=== PATIENT | male | born 1960 | race Caucasian/White ===

== ENCOUNTER 2018-10-21 09:22 | Inpatient (IN) | payer BC ==
[2018-10-21] MEDS ORDERED: ASPIRIN 81 MG CHEWABLE TABLETS PO ONE (09:27)
[2018-10-21 09:31] VITALS: BMI 41.9
[2018-10-21] MEDS ORDERED: HYDROmorphone HCl 2 MG/ML VIAL ONE ×2 (09:32→10:53)
[2018-10-21] MEDS ORDERED: HYDROmorphone HCL CARPU-JECT 2 MG/1 ML DISP.SYRIN IVPUSH ONE ×2 (09:38→10:52)
--- NOTE | 2018-10-21 09:53 | PDOC ---
History of Present Illness - General Chief Complaint: Chest Pain Stated Complaint: CHEST PAIN Time Seen by Provider: 10/21/18 09:27 - History of Present Illness Initial Comments: 10/21/18 10:44 58 years old past medical history significant for high cholesterol, obesity, daily alcohol use no history of withdrawal presents to the ED with sudden onset abdominal discomfort radiating across abdomen and across the back started approximate 5 AM this morning 10 out of 10 severe sharp associated with diaphoresis and nausea no alleviating factors no history of similar Past History - Past Medical History Allergies/Adverse Reactions: Allergies Allergy/AdvReac Type Severity Reaction Status Date / Time cephalexin monohydrate Allergy Intermediate Rash Verified 10/21/18 09:46 [From Keflex] Home Medications: Ambulatory Orders Pantoprazole Sodium [Protonix -] 40 mg PO BID #60 tablet.ec 04/18/15 Aspirin [ASA -] 325 mg PO DAILY@0800 tablet 06/03/16 Oxycodone HCl/Acetaminophen [Percocet 5-325 mg Tablet] 1 - 2 tab PO Q6H PRN #50 tablet MDD 8 06/04/16 Anemia: No Asthma: No Cancer: No Cardiac Disorders: No CVA: No COPD: No CHF: No Dementia: No Diabetes: No GI Disorders: Yes (GI BLEED, DIVERTICULITIS;HEMORROIDS'HYPERPLASTIC POLYPS) Disorders: No HTN: Yes Hypercholesterolemia: No Liver Disease: No Seizures: No Thyroid Disease: No - Surgical History Abdominal Surgery: No Appendectomy: No Cardiac Surgery: No Cholecystectomy: No GI Surgery: No Lung Surgery: No Neurologic Surgery: No Orthopedic Surgery: Yes (R KNEE SUREGERY,R SHOULDER SURGERY) - Immunization History Immunization Up to Date: No - Suicide/Smoking/Psychosocial Hx Smoking History: Current every day smoker Have you smoked in the past 12 months: Yes Number of Cigarettes Smoked Daily: 20 Information on smoking cessation initiated: No 'Breaking Loose' booklet given: 07/30/15 Hx Alcohol Use: Yes Drug/Substance Use Hx: No Substance Use Type: Alcohol Hx Substance Use Treatment: No Review of Systems - Review of Systems Comments:: 10/21/18 10:45 ROS: A complete review of 10 out of 10 review of systems is taken and is negative apart from what is previously mentioned below and in the HPI. *Physical Exam - Vital Signs Last Vital Signs Temp Pulse Resp BP Pulse Ox 97.8 F 112 H 16 150/116 H 97 10/21/18 09:29 10/21/18 09:29 10/21/18 09:29 10/21/18 09:29 10/21/18 09:29 - Physical Exam Comments: 10/21/18 10:45 Vitals: Triage Vital signs reviewed General Appearance: Moderate distress, well nourished well developed, Head: Atraumatic, Eyes: Pupils equal reactive round, extraocular movement intact Neck: Supple;No Nucal rigidity Chest Wall: Nontender Cardiac:Tachycardic Lungs: Clear to auscultation bilateral, good air movement bilaterally, Abdomen: Diffusely tender to palpation Extremities: Full range of motion to all extremities, no cyanosis, clubbing, or edema Skin: Warm and dry, no rashes or lesions, no rash, no petechiae Psych: normal mood, normal affect Heart Score/ECG Review - ECG Impressions Comment:: 10/21/18 10:46 Sinus tachycardia ED Treatment Course - LABORATORY CBC & Chemistry Diagram: 10/21/18 09:38 10/21/18 09:38 - RADIOLOGY Radiology Studies Ordered: Category Date Time Status ABDOMEN/PELVIS CTA W/WO CONTR [CT] Stat CT Scan 10/21/18 09:49 Ordered CHEST CTA [CT] Stat CT Scan 10/21/18 09:49 Ordered ABDOMEN FLAT & UPRIGHT [RAD] Stat Radiology 10/21/18 09:37 Ordered CXRPORT [CHEST X-RAY PORTABLE*] [RAD] Stat Radiology 10/21/18 09:47 Ordered - Medications Given in the ED: ED Medications Discontinued Medications Generic Name Dose Route Start Last Admin Trade Name Freq PRN Reason Stop Dose Admin Hydromorphone HCl 1 mg 10/21/18 09:38 10/21/18 09:39 Dilaudid Injection - IVPUSH 10/21/18 09:39 1 mg ONCE ONE Administration Medical Decision Making - Critical Care Time Total Critical Care Time (minutes): 60 Critical Care Statement: The care of this patient involved high complexity decision making to prevent further life threatening deterioration of the patient 's condition and/or to evaluate & treat vital organ system(s) failure or risk of failure. - Medical Decision Making 10/21/18 16:41 58 years old does not follow with a primary care doctor chronic alcohol abuse to pack-a-day smoking history obesity drinks 8-12 ounces of vodka daily no history of withdrawal presents to the ED with severe upper quadrant abdominal pain radiating across his stomach Patient tachycardic and diaphoretic on presentation stat EKG performed which showed no ischemic changes only sinus tachycardia CTA chest abdomen pelvis performed with Gastrografin in case of viscus perforation with no evidence of aneurysm dissection or viscus perforation Throughout the course of the patient in the emergency department he required a total of 3 mg of Dilaudid 1 g of acetaminophen and 30 mg of ketamine for pain control pain is now better controlled but has not resolved Patient had a CT was score of 20 although unclear how much of this was secondary to pain 1 g of Ativan was given in case withdrawal was a component of this Ativan did not seem to help patient's symptomatology No clear etiology of patient's pain at this time GI and surgery have been consult in case discussed with surgery does not appear surgical in nature We'll admit to hospital for further management of abdominal pain unknown etiology. *DC/Admit/Observation/Transfer Diagnosis at time of Disposition: Abdominal pain Qualifiers: Abdominal location: left upper quadrant Qualified Code(s): R10.12 - Left upper quadrant pain - Discharge Dispostion Condition at time of disposition: Stable Decision to Admit order: Yes - Referrals - Patient Instructions - Post Discharge Activity
[2018-10-21 10:16] LABS: BASO % 1.5 % (0-2.0); EOS % 1.5 % (0-4.5); HEMATOCRIT 50.9 % (35.4-49); HEMOGLOBIN 17.7 GM/dL (11.7-16.9); LYMPH % 27.5 % (8-40); MCH 33.9 pg (25.7-33.7); MCHC 34.8 g/dl (32.0-35.9); MEAN CELL VOLUME 97.5 fl (80-96); MEAN PLT VOLUME 9.4 fl (7.5-11.1); MONO % 8.3 % (3.8-10.2); NEUT % 61.2 % (42.8-82.8); PLATELET COUNT 158 K/MM3 (134-434); RBC 5.22 M/mm3 (4.00-5.60); RDW 13.8 % (11.9-15.9); WHITE BLOOD COUNT 6.3 K/mm3 (4.0-10.0)
[2018-10-21] MEDS ORDERED: ACETAMINOPHEN INJECTION 100 ML IVPB ONE (10:21)
[2018-10-21] MEDS ORDERED: ACETAMINOPHEN 1000 MG/100 ML VIAL (NON FORMULARY) IVPB ONE (10:24)
[2018-10-21 10:32] LABS: PROTHROMBIN TIME (PATIENT) 11.8 SEC (9.7-13.0)
[2018-10-21 10:51] LABS: ALBUMIN 3.8 g/dl (3.4-5.0); ALK PHOS 79 U/L (45-117); ANION GAP 10 MMOL/L (8-16); BILIRUBIN,TOTAL 0.8 mg/dL (0.2-1); BLOOD UREA NITROGEN 11 mg/dL (7-18); CALCIUM 9.3 mg/dL (8.5-10.1); CHLORIDE 100 mmol/L (98-107); CO2 24 mmol/L (21-32); GLUCOSE,RANDOM 144 mg/dL (74-106); MAGNESIUM 1.9 mg/dL (1.8-2.4); POTASSIUM 4.7 mmol/L (3.5-5.1); SGOT/AST 88 U/L (15-37); SGPT/ALT 77 U/L (13-61); SODIUM 134 mmol/L (136-145); TOT PROT 8.2 g/dl (6.4-8.2)
[2018-10-21] MEDS ORDERED: ONDANSETRON 4 MG/2 ML VIAL IVPUSH ONE (10:52)
[2018-10-21] MEDS ORDERED: ONDANSETRON 4 MG/2 ML VIAL ONE (10:53)
[2018-10-21 11:35] LABS: LIPASE 134 U/L (73-393)
[2018-10-21] MEDS ORDERED: KETAMINE HCL 200 MG/20 ML VIAL IVPUSH ONE (12:08)
[2018-10-21] MEDS ORDERED: FAMOTIDINE 20 MG/50 ML IVPB 20 MG/50 ML MG IVPB ONE ×2 (12:09→12:25)
[2018-10-21] MEDS ORDERED: SODIUM CHLORIDE 0.9% 1000 ML INFUS.BAG IV ONE (12:16)
[2018-10-21] MEDS ORDERED: DICYCLOMINE HCL 10 MG CAPSULE PO ONE (12:17)
[2018-10-21] MEDS ORDERED: MAG HYDROX/AL HYDROX/SIMETH 30 ML UNIT-DOSE CUP PO ONE (12:17)
[2018-10-21] MEDS ORDERED: LORazepam 2 MG/ML SDV VIAL ONE (12:24)
[2018-10-21] MEDS ORDERED: MAG HYDROX/AL HYDROX/SIMETH 30 ML UNIT-DOSE CUP ONE (12:25)
[2018-10-21] MEDS ORDERED: DICYCLOMINE HCL 10 MG CAPSULE ONE (12:25)
--- NOTE | 2018-10-21 12:54 | HP ---
CHIEF COMPLAINT: abdominal pain PCP: does not have one HISTORY OF PRESENT ILLNESS: Patient is a 58 year old male with a significant past medical history of ETOH daily use (Vodka 12-21 ounces daily), hyperlipidemia, obesity. Patient presents to the ED today with complaints of sudden onset of left sided abdominal pain and discomfort that radiates across his entire abdomen and across his back. This abdominal pain began today at 0500 this morning and pain was severe 10/10 and associated with diaphoresis and nausea. He denies any nausea, vomiting, denies any headaches, no diarrhea, constipation, no chest pain. Patient tachycardic and diaphoretic on presentation to the ED and a stat EKG showed sinus tachycardia. CTA chest/abdomen/pelvis performed with no evidence of aneurysm dissection or evidence of perforation. In the ED patient's abdominal pain was treated with Dilaudid, Ketamine for pain control and Morphine IV. He was also given Ativan 1mg for possible alcohol withdrawal. Since serial abdominal imaging negative for cause of abdominal pain, GI was consulted by the ED. Patient anxious and tremulous in the ED. CIWA score elevated but he denies any history of withdrawal seizures. Will give ativan prn , banana bag and monitor closely. May need Libirum if he goes into acute alcohol withdrawal. ER course was notable for: (1) dilaudid, ketamine, ativan. (2) abdominal pain, negative abdominal imaging (3) Recent Travel: denies PAST MEDICAL HISTORY: as noted above Social History: Smoking: daily, pack per day Alcohol: 12-21 ounces of vodka daily Drugs: none reported Family History: Allergies cephalexin monohydrate [From Keflex] Allergy (Intermediate, Verified 10/21/18 09 :46) Rash HOME MEDICATIONS: Home Medications Medication Instructions Recorded Pantoprazole Sodium [Protonix -] 40 mg PO BID #60 tablet.ec 04/18/15 Aspirin [ASA -] 325 mg PO DAILY@0800 tablet 06/03/16 Oxycodone HCl/Acetaminophen 1 - 2 tab PO Q6H PRN #50 tablet 06/04/16 [Percocet 5-325 mg Tablet] MDD 8 PHYSICAL EXAMINATION Vital Signs - 24 hr 10/21/18 09:29 Temperature 97.8 F Pulse Rate 112 H Respiratory 16 Rate Blood Pressure 150/116 H O2 Sat by Pulse 97 Oximetry (%) GENERAL: Awake, alert, and fully oriented, anxious and in diffused abdominal pain. HEAD: Normal with no signs of trauma. EYES: Pupils equal, round and reactive to light, extraocular movements intact, sclera anicteric, conjunctiva clear. No lid lag. EARS, NOSE, THROAT: Ears normal, nares patent, oropharynx clear without exudates. Moist mucous membranes. NECK: Normal range of motion, supple without lymphadenopathy, JVD, or masses. LUNGS: Breath sounds equal, clear to auscultation bilaterally. No wheezes, and no crackles. No accessory muscle use. HEART: Regular rate and rhythm ABDOMEN: obsese abdomen, pain on palpation of left upper quadrant. abdominal pain radiates to ribs. MUSCULOSKELETAL: Normal range of motion at all joints. No bony deformities or tenderness. No CVA tenderness. UPPER EXTREMITIES: No peripheral edema. LOWER EXTREMITIES: No peripheral edema. NEUROLOGICAL: Normal speech. PSYCHIATRIC: anxious, tremulous, appears to be in alcohol withdrawal. ciwa elevated. Laboratory Results - last 24 hr 10/21/18 10/21/18 10/21/18 09:38 09:38 09:38 WBC 6.3 RBC 5.22 Hgb 17.7 H Hct 50.9 H MCV 97.5 H MCH 33.9 H MCHC 34.8 RDW 13.8 Plt Count 158 MPV 9.4 Absolute Neuts (auto) 3.9 Neutrophils % 61.2 Lymphocytes % 27.5 Monocytes % 8.3 Eosinophils % 1.5 Basophils % 1.5 Nucleated RBC % 0 PT with INR 11.80 INR 1.00 Sodium 134 L Potassium 4.7 Chloride 100 Carbon Dioxide 24 Anion Gap 10 BUN 11 Creatinine 1.0 Creat Clearance w eGFR 77.30 Random Glucose 144 H Calcium 9.3 Magnesium 1.9 Total Bilirubin 0.8 AST 88 H ALT 77 H Alkaline Phosphatase 79 Creatine Kinase 350 H Creatine Kinase Index 0.7 CK-MB (CK-2) 2.7 Troponin I < 0.02 Total Protein 8.2 Albumin 3.8 Lipase 134 Blood Type Antibody Screen 10/21/18 09:38 WBC RBC Hgb Hct MCV MCH MCHC RDW Plt Count MPV Absolute Neuts (auto) Neutrophils % Lymphocytes % Monocytes % Eosinophils % Basophils % Nucleated RBC % PT with INR INR Sodium Potassium Chloride Carbon Dioxide Anion Gap BUN Creatinine Creat Clearance w eGFR Random Glucose Calcium Magnesium Total Bilirubin AST ALT Alkaline Phosphatase Creatine Kinase Creatine Kinase Index CK-MB (CK-2) Troponin I Total Protein Albumin Lipase Blood Type O NEGATIVE Antibody Screen Negative ASSESSMENT/PLAN: Patient is a 58 year old male with a significant past medical history of ETOH daily use (Vodka 12-21 ounces daily), hyperlipidemia, obesity. Patient presents to the ED today with complaints of sudden onset of left sided abdominal pain and discomfort that radiates across his entire abdomen and across his back. This abdominal pain began today at 0500 this morning and pain was severe 10/10 and associated with diaphoresis and nausea. He denies any nausea, vomiting, denies any headaches, no diarrhea, constipation, no chest pain. Patient with tachycardia and diaphoretic on presentation to the ED and a stat EKG showed sinus tachycardia. CTA chest/abdomen/pelvis performed with no evidence of aneurysm dissection or evidence of perforation. In the ED patient' s abdominal pain was treated with Dilaudid, Ketamine for pain control and Morphine IV. He was also given Ativan 1mg for possible alcohol withdrawal. Since serial abdominal imaging negative for cause of abdominal pain, GI was consulted by the ED. Patient anxious and tremulous in the ED. CIWA score elevated but he denies any history of withdrawal seizures. Will give ativan prn , banana bag and monitor closely. May need Libirum if he goes into acute alcohol withdrawal. Imaging: abdominal cta/chest cta: no acute pathology abdominal ultrasound: hepatomegaly, diffuse fatty infiltrates of the liver. Abdominal pain. unclear etiology. no evidence of trauma, no falls reported. negative serial imaging of abdomen, negative for perforation or of aneurysm/dissection. Treated with IV Dilaudid, Ketamine, morphine. Will start on clears and monitor GI consulted for further recommendations. Acute ETOH withdrawal CIWA score elevated. Denies history of withdrawal seizures. Start on Ativan 2m IV Initiate Librium if patient experiences acute ETOH w/drawl Monitor on tele. Card: Rule out cardiac cause of abdominal discomfort Troponin initally negative, trend x 2 Echo in a.m. Monitor on tele daily ekgs. fen clears monitor electrolytes prophy SCDs Visit type - Emergency Visit Emergency Visit: Yes ED Registration Date: 10/21/18 Care time: The patient presented to the Emergency Department on the above date and was hospitalized for further evaluation of their emergent condition. - New Patient This patient is new to me today: Yes Date on this admission: 10/21/18 - Critical Care Critical Care patient: No
[2018-10-21] MEDS ORDERED: KETAMINE HCL 200 MG/20 ML VIAL ONE (13:15)
--- NOTE | 2018-10-21 13:37 | EKG ---
Test Reason : Blood Pressure : / mmHG Vent. Rate : 111 BPM Atrial Rate : 111 BPM P-R Int : 140 ms QRS Dur : 078 ms QT Int : 358 ms P-R-T Axes : 063 025 066 degrees QTc Int : 486 ms SINUS TACHYCARDIA WITH OCCASIONAL PREMATURE VENTRICULAR COMPLEXES POSSIBLE LEFT ATRIAL ENLARGEMENT NONSPECIFIC T WAVE ABNORMALITY ABNORMAL ECG WHEN COMPARED WITH ECG OF 30-JUL-2015 13:37, PREMATURE VENTRICULAR COMPLEXES ARE NOW PRESENT Confirmed by LALITHA ASENCIO, STEPHY ([id number]) on 10/21/2018 1:37:11 PM Referred By: Confirmed By:STEPHY DOTY MD
[2018-10-21] MEDS ORDERED: FOLIC ACID INJECTION - 1 MG, THIAMINE HCL 100 MG, MULTIVIT INJECTION ADULT 10 ML in SOD... IVPB ONE (15:32)
[2018-10-21] MEDS ORDERED: SODIUM CHLORIDE 1,000 ML IV SCH (15:45)
[2018-10-21] MEDS ORDERED: LORazepam 2 MG/ML SDV VIAL IVPUSH PRN (17:29)
[2018-10-21] MEDS ORDERED: morphine SULFATE 4 MG/ML VIAL IVPUSH PRN (17:30)
[2018-10-21 18:42] LABS: URINE APPEARANCE CLEAR; URINE BILIRUBIN SMALL (NEGATIVE); URINE COLOR DK YELLOW; URINE GLUCOSE (UA) NEGATIVE (NEGATIVE); URINE KETONE 15 mg/dl (NEGATIVE); URINE PROTEIN 100 (NEGATIVE)
[2018-10-21 18:43] LABS: URINE LEUK ESTERASE NEGATIVE (NEGATIVE); URINE NITRITE NEGATIVE (NEGATIVE)
--- NOTE | 2018-10-21 19:02 | CON.GI ---
Consult Consult Specialty:: GI Referred by:: Hospitalist Service Reason for Consultation:: Abdominal pain - History of Present Illness Chief Complaint: My left side hurts History of Present Illness: 58M [address] [facility] for evaluation of intractable left upper flank/ adbominal/lower rib pain. Was in [facility] until 5AM this morning. he states waking up, getting a drink out of the fridge, feeling something "pop" along the left side of his lower ribs and began experiencing severe pain. Pain focused along left lower rib border, radiaiting at times to flank and abdomen and workse with motion, coughing and deep inspiration. No simialr episodes in the past. No associated nausea, vomiting although his son states that he was dry heaving over the weekend (has been trying to quit smoking by stoping cold turkey intermittently). No fevers, chills. No rectal bleeding/diarrhea. + constipation. Last BM thursday. Has prior EGD and colonoscopy with Dr. Tao. At [facility] he performed EGD 07/07 ([place] ulcer), 04/05: (bleeding AVM duodenum) and Colonoscopy 02/03 (severe diverticulosis and hyperplastic polyp ). More recently, he underwent EGD [address] Tao @ [facility] that rveealed gastritis. He is tremulous but states he has had tremors since childhood. Unreevaling work-up in ER including CTA chest/abdomen, abdominal US (enlarged fatty liver). - History Source History Provided By: Patient, Family Member, Medical Record Limitations to Obtaining History: No Limitations - Past Medical History Gastrointestinal: Yes: Constipation, Diverticulitis, Diverticulosis, GERD Hepatobiliary: Yes: Other (ALCOHOLIC FATTY LIVER, ALCOHOL ABUSE) Musculoskeletal: Yes: Osteoarthritis - Past Surgical History Past Surgical History: Yes: Joint Replacement (Right knee) - Alcohol/Substance Use Hx Alcohol Use: Yes (2-3 martini's per day) History of Substance Use: reports: None - Smoking History Smoking history: Current every day smoker Have you smoked in the past 12 months: Yes Aproximately how many cigarettes per day: 20 - Social History ADL: Independent Place of : [facility] History of Recent Travel: No Home Medications - Allergies Allergies/Adverse Reactions: Allergies Allergy/AdvReac Type Severity Reaction Status Date / Time cephalexin monohydrate Allergy Intermediate Rash Verified 10/21/18 09:46 [From Keflex] - Home Medications Home Medications: Ambulatory Orders Pantoprazole Sodium [Protonix -] 40 mg PO BID #60 tablet.ec 04/18/15 Aspirin [ASA -] 325 mg PO DAILY@0800 tablet 06/03/16 Oxycodone HCl/Acetaminophen [Percocet 5-325 mg Tablet] 1 - 2 tab PO Q6H PRN #50 tablet MDD 8 06/04/16 Family Disease History - Family Disease History Family Disease History: Other: Father (: 56: Ankylosing Spondylitis), Mother (: 76: CVA complications), Brother (1, healthy), Son (1, healthy), Daughter (1, healthy) Other Family History: No family history of colorectal cancer or other GI malignancy Review of Systems - Review of Systems Constitutional: denies: Chills, Fever, Unintentional Wgt. Loss Cardiovascular: denies: Chest Pain Respiratory: reports: Cough, SOB Physical Exam-GI Vital Signs: Vital Signs Constitutional: Yes: Anxious Eyes: No: Sclera Icterus Cardiovascular: Yes: Tachycardia (regular rhythm). No: Murmur Respiratory: Yes: CTA Bilaterally Gastrointestinal Inspection: Yes: Other (Mild rectus diastasis). No: Distention , Scars ...Auscultate: Yes: Normoactive Bowel Sounds ...Palpate: Yes: Soft, Tenderness (TTP along left lower ribs, left upper flank with guarding) ...Percussion: No: Tympanitic ...Rectal Exam: Yes: Other (No external lesions, no masses, light rico stool. No fecal impaction. No blood/melena. Prostate not palpated) Edema: No (No LE edema) Neurological: Yes: Alert, Tremors Labs: CBC, BMP 10/21/18 09:38 10/21/18 09:38 INR, PTT INR 1.00 (0.83-1.09) 10/21/18 09:38 Hepatic Panel Total Bilirubin 0.8 mg/dL (0.2-1) 10/21/18 09:38 AST 88 U/L (15-37) H 10/21/18 09:38 ALT 77 U/L (13-61) H 10/21/18 09:38 Alkaline Phosphatase 79 U/L (45-117) 05/02/19 09:38 Albumin 3.8 g/dl (3.4-5.0) 10/21/18 09:38 Imaging - Results Cat Scan: Report Reviewed Ultrasound: Report Reviewed Problem List - Problems (1) Abdominal pain Assessment/Plan: By reproducibilty upon palpation of left lower ribs along with worsening upon movement and inspiration, suspect somatic etiology of pain, ie musculoskeletal as opposed to visceral pathology. Advise: Alcohol and nicotine withdrawal protocols Urine tox NPO for now. IV hydration Surgical consult for opinion given severity of pain, however no acute pathology noted on imaging Lidoderm patch to the area with further management of pain per primary team Monitor for withdrawal NPO for now Protonix 20mg once daily given h/o reflux ? need for ASA 325mg daily. unclear indication. Code(s): R10.9 - UNSPECIFIED ABDOMINAL PAIN Qualifiers: Abdominal location: left upper quadrant Qualified Code(s): R10.12 - Left upper quadrant pain (2) Transaminitis Assessment/Plan: Fatty liver + actively drinking. Last drink was plast night Advised complete alcohol cessation Check screening hepatitis serologies Code(s): R74.0 - NONSPEC ELEV OF LEVELS OF TRANSAMNS & LACTIC ACID DEHYDRGNSE
[2018-10-21 19:06] VITALS: BP 177/104; PULSE 100; TEMP 98.2
[2018-10-21] MEDS ORDERED: LIDOCAINE 5% TOPICAL PATCH TP ONE (19:21)
[2018-10-21] MEDS ORDERED: LIDOCAINE 5% TOPICAL PATCH ONE (19:59)
--- NOTE | 2018-10-21 21:17 | DS ---
Physical Exam: SUBJECTIVE: Patient seen and examined OBJECTIVE: Vital Signs Period Temp Pulse Resp BP Sys/Godinez Pulse Ox Last 24 Hr 97.8 F-98.2 F 100-112 16-19 150-177/104-116 95-97 PHYSICAL EXAM GENERAL: The patient is awake, alert, and fully oriented, in no acute distress. HEAD: Normal with no signs of trauma. EYES: PERRL, extraocular movements intact, sclera anicteric, conjunctiva clear. ENT: Ears normal, nares patent, oropharynx clear without exudates, moist mucous membranes. NECK: Trachea midline, full range of motion, supple. LUNGS: Breath sounds equal, clear to auscultation bilaterally, no wheezes, no crackles, no accessory muscle use. HEART: Regular rate and rhythm, S1, S2 without murmur, rub or gallop. ABDOMEN: Soft, nontender, nondistended, normoactive bowel sounds, no guarding, no rebound, no hepatosplenomegaly, no masses. EXTREMITIES: 2+ pulses, warm, well-perfused, no edema. NEUROLOGICAL: Cranial nerves II through XII grossly intact. Normal speech, gait not observed. PSYCH: Normal mood, normal affect. SKIN: Warm, dry, normal turgor, no rashes or lesions noted. LABS Laboratory Results - last 24 hr 10/21/18 10/21/18 10/21/18 09:38 09:38 09:38 WBC 6.3 RBC 5.22 Hgb 17.7 H Hct 50.9 H MCV 97.5 H MCH 33.9 H MCHC 34.8 RDW 13.8 Plt Count 158 MPV 9.4 Absolute Neuts (auto) 3.9 Neutrophils % 61.2 Lymphocytes % 27.5 Monocytes % 8.3 Eosinophils % 1.5 Basophils % 1.5 Nucleated RBC % 0 PT with INR 11.80 INR 1.00 Sodium 134 L Potassium 4.7 Chloride 100 Carbon Dioxide 24 Anion Gap 10 BUN 11 Creatinine 1.0 Creat Clearance w eGFR 77.30 Random Glucose 144 H Calcium 9.3 Magnesium 1.9 Total Bilirubin 0.8 AST 88 H ALT 77 H Alkaline Phosphatase 79 Creatine Kinase 350 H Creatine Kinase Index 0.7 CK-MB (CK-2) 2.7 Troponin I < 0.02 Total Protein 8.2 Albumin 3.8 Lipase 134 Urine Color Urine Appearance Urine pH Ur Specific Boyce Urine Protein Urine Glucose (UA) Urine Ketones Urine Blood Urine Nitrite Urine Bilirubin Urine Urobilinogen Ur Leukocyte Esterase Urine WBC (Auto) Urine RBC (Auto) Urine Casts (Auto) U Pathogenic Cast Auto U Epithel Cells (Auto) U Sm Round Cell (Auto) Urine Crystals (Auto) Urine Bacteria (Auto) Blood Type Antibody Screen 10/21/18 10/21/18 09:38 18:05 WBC RBC Hgb Hct MCV MCH MCHC RDW Plt Count MPV Absolute Neuts (auto) Neutrophils % Lymphocytes % Monocytes % Eosinophils % Basophils % Nucleated RBC % PT with INR INR Sodium Potassium Chloride Carbon Dioxide Anion Gap BUN Creatinine Creat Clearance w eGFR Random Glucose Calcium Magnesium Total Bilirubin AST ALT Alkaline Phosphatase Creatine Kinase Creatine Kinase Index CK-MB (CK-2) Troponin I Total Protein Albumin Lipase Urine Color Dk yellow Urine Appearance Clear Urine pH 6.0 Ur Specific Boyce 1.078 H Urine Protein 100 Urine Glucose (UA) Negative Urine Ketones 15 mg/dl Urine Blood Negative Urine Nitrite Negative Urine Bilirubin Small Urine Urobilinogen 1.0 Ur Leukocyte Esterase Negative Urine WBC (Auto) No Result Required. Urine RBC (Auto) No Result Required. Urine Casts (Auto) No Result Required. U Pathogenic Cast Auto No Result Required. U Epithel Cells (Auto) No Result Required. U Sm Round Cell (Auto) No Result Required. Urine Crystals (Auto) No Result Required. Urine Bacteria (Auto) No Result Required. Blood Type O NEGATIVE Antibody Screen Negative HOSPITAL COURSE: Patient admitted today for abdominal pain, impending etoh withdrawal. Patient was found to be tachycardic and hypertensive upon arrival to ER. Patient demanded to leave AMA. Risks of doing so were presented to him - worsening abdominal pain and etoh withdrawal, and he understood and signed form. Date of Admission:10/21/18 Date of Discharge: 10/21/18 Minutes to complete discharge: 10 Discharge Summary Reason For Visit: ALCOHOL ABUSE, ABDOMINAL PAIN Current Active Problems Abdominal pain (Acute) Transaminitis (Acute) Condition: Stable - Instructions - Home Medications Comprehensive Discharge Medication List: Ambulatory Orders Pantoprazole Sodium [Protonix -] 40 mg PO BID #60 tablet.ec 04/18/15 Aspirin [ASA -] 325 mg PO DAILY@0800 tablet 06/03/16 Oxycodone HCl/Acetaminophen [Percocet 5-325 mg Tablet] 1 - 2 tab PO Q6H PRN #50 tablet MDD 8 06/04/16 This patient is new to me today: Yes Date on this admission: 10/21/18 Emergency Visit: Yes ED Registration Date: 10/21/18 Care time: The patient presented to the Emergency Department on the above date and was hospitalized for further evaluation of their emergent condition. Critical Care patient: No - Discharge Referral Referred to [facility] No
[2018-10-21] MEDS ORDERED: FAMOTIDINE 20 MG/50 ML IVPB 20 MG/50 ML MG IVPB SCH (22:00)
[2018-10-21] MEDS ORDERED: ATORVASTATIN CA 40 MG TABLET (FP) PO SCH (22:00)
[2018-10-21] MEDS ORDERED: LIDOCAINE PATCH REMOVAL MC SCH (22:00)
[2018-10-22] MEDS ORDERED: PANTOPRAZOLE 40 MG TABLET (FP) PO SCH (10:00)
[2018-10-22] MEDS ORDERED: FOLIC ACID 1 MG TABLET (FP) PO SCH (10:00)
[2018-10-22] MEDS ORDERED: THIAMINE HCL 100 MG TABLET (FP) PO SCH (10:00)
== END 2018-10-21 21:30 | disposition left against medical advice (07) | DRG 392 ==
LOC: JER 09:22 → JERBED 12:24
PROVIDERS: ADMIT Internal Medicine; ATTEND Nurse Practitioner Family
DX: R10.12 Left upper quadrant pain (principal); Z68.41 Body mass index [BMI] 40.0-44.9, adult; F10.230 Alcohol dependence with withdrawal, uncomplicated; K70.0 Alcoholic fatty liver; E78.00 Pure hypercholesterolemia, unspecified; E66.9 Obesity, unspecified; F17.210 Nicotine dependence, cigarettes, uncomplicated; K59.00 Constipation, unspecified; Z96.651 Presence of right artificial knee joint
CPT/HCPCS: 36415; 71045-TC-FY; 71275-TC; 74019-TC-FY; 74174-TC; 76700-TC; 80053; 81003; 82550; 82553; 83036; 83690; 83735; 84484; 85025; 85610; 86850; 86900; 86901; 87077; 87086; 93005; 93010; 99283-25; J0131; J7030; Q9967